=== PATIENT | female | born 1970 | race Native Hawaiian/Other Pacific Islander ===

== ENCOUNTER 2016-10-30 12:47 | Emergency (ER) | payer OTHER ==
[~2016-10-30] VITALS: Ht 162.6 cm; Wt 131.5 kg
[~2016-10-30 12:47] MED LIST: ASA LO-DOSE81 MG OR; BENA5CAP4 PO; CLONIDINE0.1 MG PO; GEMF600T17 PO; JANUVIA100 MG PO; LOTREL1 CA3 PO; LOTREL1 CA4 PO; LOTREL1 CA5 PO; METFORMIN ER1000 MG PO; MIRT15TA2 PO; PHENYTOIN EX100 MG OR; RANI150T78 PO; TRIA37.541 PO
[2016-10-30 13:05] VITALS: BP 181/97; TEMP 97.7
== END 2016-10-30 14:40 | disposition home or self-care (01) ==
LOC: ED 12:47
DX: S60.221A Contusion of right hand, initial encounter (principal); W18.39XA Other fall on same level, initial encounter; Y92.531 Health care provider office as the place of occurrence of the external cause
CPT/HCPCS: 99282

== ENCOUNTER 2017-07-26 13:28 | Outpatient (CLI) | payer OTHER ==
[2017-07-26] MEDS ORDERED: PANTOPRAZOLE 40MG TA PO (15:37)
[2017-07-26] MEDS ORDERED: CLIN300C PO (15:37)
[2017-07-26] MEDS ORDERED: BUSPIRONE5 MG PO (15:40)
[2017-07-26] MEDS ORDERED: AMLODIPINE BESYLATE PO (15:41)
[2017-07-26] MEDS ORDERED: CLONAZEP ODT2 MG PO ×2 (15:42→16:08)
[2017-07-26] MEDS ORDERED: CLONIDINE HCL0.1 MG PO ×2 (15:48)
[2017-07-26] MEDS ORDERED: CARV12.5 PO (15:49)
[2017-07-26] MEDS ORDERED: MINO10TA (15:49)
[2017-07-26] MEDS ORDERED: NEURONTIN800 MG PO (15:50)
[2017-07-26] MEDS ORDERED: BUPR150T PO (15:51)
[2017-07-26] MEDS ORDERED: LIPITOR40 MG PO (15:52)
[2017-07-26] MEDS ORDERED: CLOPIDOGREL75 MG PO (15:52)
[2017-07-26] MEDS ORDERED: CYCL10TA35 PO (15:54)
[2017-07-26] MEDS ORDERED: HYDR50CA21 PO (16:09)
== END 2017-07-26 13:30 | disposition short-term general hospital (02) ==
LOC: AMB 13:28
DX: R06.09 Other forms of dyspnea (principal); R06.2 Wheezing
CPT/HCPCS: A0425; A0427

== ENCOUNTER 2017-07-26 13:30 | Emergency (ER) | payer OTHER ==
[~2017-07-26] VITALS: Ht 162.6 cm; Wt 135.6 kg
[2017-07-26 13:30] VITALS: TEMP 97.2
[2017-07-26 14:28] LABS: PLATELET COUNT 276 K/uL (152-353)
[2017-07-26 14:36] LABS: POTASSIUM 5.8 mmol/L (3.6-5.2)
[2017-07-26] MEDS ORDERED: PANTOPRAZOLE 40MG TA PO (15:37)
[2017-07-26] MEDS ORDERED: CLIN300C PO (15:37)
[2017-07-26] MEDS ORDERED: BUSPIRONE5 MG PO (15:40)
[2017-07-26] MEDS ORDERED: AMLODIPINE BESYLATE PO (15:41)
[2017-07-26] MEDS ORDERED: CLONAZEP ODT2 MG PO ×2 (15:42→16:08)
[2017-07-26] MEDS ORDERED: CLONIDINE HCL0.1 MG PO ×2 (15:48)
[2017-07-26] MEDS ORDERED: MINO10TA (15:49)
[2017-07-26] MEDS ORDERED: CARV12.5 PO (15:49)
[2017-07-26] MEDS ORDERED: NEURONTIN800 MG PO (15:50)
[2017-07-26] MEDS ORDERED: BUPR150T PO (15:51)
[2017-07-26] MEDS ORDERED: CLOPIDOGREL75 MG PO (15:52)
[2017-07-26] MEDS ORDERED: LIPITOR40 MG PO (15:52)
[2017-07-26] MEDS ORDERED: CYCL10TA35 PO (15:54)
[2017-07-26] MEDS ORDERED: HYDR50CA21 PO (16:09)
[2017-07-26 17:40] VITALS: BP 205/114
== END 2017-07-26 18:06 | disposition short-term general hospital (02) ==
LOC: ED 13:30
PROVIDERS: Family Medicine
PROC: 05HP33Z Insertion of Infusion Device into Right External Jugular Vein, Percutaneous Approach (ICD-10-PCS; principal; 2017-07-26)
DX: N18.6 End stage renal disease (principal); I50.9 Heart failure, unspecified; E87.79 Other fluid overload; I10 Essential (primary) hypertension; E11.9 Type 2 diabetes mellitus without complications
CPT/HCPCS: 36415; 36600; 80053; 82805; 83880; 85027; 85379; 93005; 96372; 96374; 96375; 99285; C1768; J1815; J1940; J2175; J2270; J3490

== ENCOUNTER 2017-08-14 08:25 | Outpatient (CLI) | payer OTHER ==
[~2017-08-14 08:25] MED LIST changes: +AMLODIPINE BESYLATE PO; +BUPR150T PO; +BUSPIRONE5 MG PO; +CARV12.5 PO; +CLIN300C PO; +CLONAZEP ODT2 MG PO; +CLONIDINE HCL0.1 MG PO; +CLOPIDOGREL75 MG PO; +CYCL10TA35 PO; +HYDR50CA21 PO; +LIPITOR40 MG PO; +MINO10TA; +NEURONTIN800 MG PO; +PANTOPRAZOLE 40MG TA PO
== END 2017-08-14 08:26 | disposition short-term general hospital (02) ==
LOC: AMB 08:25
DX: R07.89 Other chest pain (principal)
CPT/HCPCS: A0425; A0427

== ENCOUNTER 2017-08-14 08:33 | Emergency (ER) | payer OTHER ==
[~2017-08-14] VITALS: Ht 162.6 cm; Wt 150.6 kg
[2017-08-14 09:27] LABS: PLATELET COUNT 143 K/uL (152-353)
[2017-08-14 09:42] LABS: POTASSIUM 4.2 mmol/L (3.6-5.2)
[2017-08-14 12:35] VITALS: BP 104/72; TEMP 97.3
== END 2017-08-14 12:42 | disposition short-term general hospital (02) ==
LOC: ED 08:33
DX: R07.89 Other chest pain (principal); R00.0 Tachycardia, unspecified
CPT/HCPCS: 36415; 80053; 84484; 85027; 93005; 96374; 99284; J2270

== ENCOUNTER 2017-08-14 12:42 | Outpatient (CLI) | payer OTHER | END 2017-08-14 13:58 | disposition short-term general hospital (02) | LOC: AMB 12:42 | DX: R07.89 Other chest pain (principal); R00.0 Tachycardia, unspecified | CPT/HCPCS: A0425; A0427 ==

== ENCOUNTER 2017-11-18 09:50 | Outpatient (CLI) | payer OTHER | END 2017-11-18 23:14 | disposition home or self-care (01) | LOC: NM 09:50 | DX: N25.81 Secondary hyperparathyroidism of renal origin (principal) | CPT/HCPCS: A9500 ==

== ENCOUNTER 2017-12-16 04:54 | Emergency (ER) | payer OTHER ==
[~2017-12-16] VITALS: Ht 162.6 cm; Wt 154.2 kg
[2017-12-16 05:58] LABS: PLATELET COUNT 280 K/uL (152-353)
[2017-12-16 06:33] LABS: POTASSIUM 5.6 mmol/L (3.6-5.2)
[2017-12-16 11:10] VITALS: BP 178/74
== END 2017-12-16 11:10 | disposition home or self-care (01) ==
LOC: ED 04:54
PROVIDERS: Emergency Medicine
DX: A08.39 Other viral enteritis (principal)
CPT/HCPCS: 80053; 82550; 82553; 84484; 85027; 86140; 93005; 96372; 99283; J2175; J2405

== ENCOUNTER 2018-01-13 10:39 | Outpatient (CLI) | payer OTHER ==
[2018-01-13] MEDS ORDERED: PROBIOTIC1 TAB PO (11:41)
[2018-01-13] MEDS ORDERED: MELATONIN5 M2 PO (11:43)
[2018-01-13] MEDS ORDERED: PROM25TA52 PO (11:43)
[2018-01-13] MEDS ORDERED: OMEPRAZOLE40 MG PO (11:44)
[2018-01-13] MEDS ORDERED: ACET-655 PO (11:46)
[2018-01-13] MEDS ORDERED: ASPIRIN 81 LOW81 MG PO (11:47)
[2018-01-13] MEDS ORDERED: ROCALTROL0.5 MCG PO (11:47)
[2018-01-13] MEDS ORDERED: ZESTRIL40 MG PO (11:48)
[2018-01-13] MEDS ORDERED: BELBUCA150 MCG BU (11:49)
== END 2018-01-13 10:43 | disposition short-term general hospital (02) ==
LOC: AMB 10:39
DX: R07.89 Other chest pain (principal); R06.02 Shortness of breath
CPT/HCPCS: A0425; A0427

== ENCOUNTER 2018-01-13 10:43 | Inpatient (IN) | payer OTHER ==
[2018-01-13] VITALS (30 sets, daily range): BP systolic 116–193; BP diastolic 64–125; TEMP 97.5–98.4; Ht 162.6 cm; Wt 81.2 kg
[~2018-01-13] VITALS: Ht 162.6 cm; Wt 81.2 kg
[2018-01-13 11:32] LABS: PLATELET COUNT 239 K/uL (152-353)
[2018-01-13] MEDS ORDERED: PROBIOTIC1 TAB PO (11:41)
[2018-01-13] MEDS ORDERED: MELATONIN5 M2 PO (11:43)
[2018-01-13] MEDS ORDERED: PROM25TA52 PO (11:43)
[2018-01-13] MEDS ORDERED: OMEPRAZOLE40 MG PO (11:44)
[2018-01-13] MEDS ORDERED: ACET-655 PO (11:46)
[2018-01-13] MEDS ORDERED: ASPIRIN 81 LOW81 MG PO (11:47)
[2018-01-13] MEDS ORDERED: ROCALTROL0.5 MCG PO (11:47)
[2018-01-13] MEDS ORDERED: ZESTRIL40 MG PO (11:48)
[2018-01-13] MEDS ORDERED: BELBUCA150 MCG BU (11:49)
[2018-01-13 12:02] LABS: POTASSIUM 3.2 mmol/L (3.6-5.2); SODIUM 143 mmol/L (136-145)
[2018-01-13 12:16] LABS: PARTIAL THROMBOPLASTIN TIME 23.2 SECONDS (24.5-33.6)
[2018-01-14] VITALS (60 sets, daily range): BP systolic 131–229; BP diastolic 66–112; TEMP 97.8–99.1
[2018-01-14 06:16] LABS: PLATELET COUNT 288 K/uL (152-353)
[2018-01-15] VITALS (8 sets, daily range): BP systolic 143–172; BP diastolic 71–94; TEMP 98.4–98.8
[2018-01-15 07:58] LABS: PLATELET COUNT 368 K/uL (152-353)
[2018-01-15 08:07] LABS: POTASSIUM 4.6 mmol/L (3.6-5.2)
== END 2018-01-15 12:35 | disposition home or self-care (01) | DRG 308 ==
LOC: ED 10:43 → ICU 15:20
PROVIDERS: Allergy & Immunology; ADMIT Student in an Organized Health Care Education/Training Program
DX: I48.91 Unspecified atrial fibrillation (principal); N18.6 End stage renal disease; I12.0 Hypertensive chronic kidney disease with stage 5 chronic kidney disease or end stage renal disease; E11.22 Type 2 diabetes mellitus with diabetic chronic kidney disease; I25.10 Atherosclerotic heart disease of native coronary artery without angina pectoris; E11.42 Type 2 diabetes mellitus with diabetic polyneuropathy; R51 Headache; E66.8 Other obesity
CPT/HCPCS: 80048; 80053; 82310; 82550; 83735; 84100; 84436; 84443; 84484; 85027; 85610; 85730; 93005; 96365; 96376; 99285; J0360; J1644; J1815; J2175; J2405; J3030; J3490

== ENCOUNTER 2018-01-13 12:44 | Outpatient (CLI) | payer OTHER ==
[~2018-01-13 12:44] MED LIST changes: +ACET-655 PO; +ASPIRIN 81 LOW81 MG PO; +BELBUCA150 MCG BU; +MELATONIN5 M2 PO; +OMEPRAZOLE40 MG PO; +PROBIOTIC1 TAB PO; +PROM25TA52 PO; +ROCALTROL0.5 MCG PO; +ZESTRIL40 MG PO
== END 2018-01-13 20:36 | disposition home or self-care (01) ==
LOC: LAB 12:44
DX: D64.9 Anemia, unspecified (principal)

== ENCOUNTER 2018-01-20 12:39 | Emergency (ER) | payer OTHER ==
[~2018-01-20] VITALS: Ht 162.6 cm; Wt 136.1 kg
[2018-01-20 14:28] LABS: PLATELET COUNT 251 K/uL (152-353)
[2018-01-20 14:39] LABS: POTASSIUM 4.4 mmol/L (3.6-5.2)
[2018-01-20 15:00] VITALS: BP 163/86; TEMP 97.9
== END 2018-01-20 15:00 | disposition home or self-care (01) ==
LOC: ED 12:39
DX: S92.514A Nondisplaced fracture of proximal phalanx of right lesser toe(s), initial encounter for closed fracture (principal); E11.9 Type 2 diabetes mellitus without complications; W20.8XXA Other cause of strike by thrown, projected or falling object, initial encounter; Y92.89 Other specified places as the place of occurrence of the external cause
CPT/HCPCS: 80053; 81000; 83036; 85027; 99282

== ENCOUNTER 2018-02-15 10:08 | Emergency (ER) | payer OTHER ==
[~2018-02-15] VITALS: Ht 162.6 cm; Wt 136.1 kg
[2018-02-15 10:10] VITALS: TEMP 98.7
[2018-02-15 11:54] VITALS: BP 127/74
== END 2018-02-15 11:52 | disposition home or self-care (01) ==
LOC: ED 10:08
PROC: 2W3RX1Z Immobilization of Left Lower Leg using Splint (ICD-10-PCS; principal; 2018-02-15)
DX: S93.492A Sprain of other ligament of left ankle, initial encounter (principal); W01.0XXA Fall on same level from slipping, tripping and stumbling without subsequent striking against object, initial encounter; Y92.89 Other specified places as the place of occurrence of the external cause
CPT/HCPCS: 96372; 99283; J1885; J2550

== ENCOUNTER 2018-06-10 09:41 | Outpatient (CLI) | payer OTHER | END 2018-06-10 09:44 | disposition short-term general hospital (02) | LOC: AMB 09:41 | DX: R07.89 Other chest pain (principal) | CPT/HCPCS: A0425; A0427 ==

== ENCOUNTER 2018-06-10 09:50 | Emergency (ER) | payer OTHER ==
[~2018-06-10] VITALS: Ht 162.6 cm; Wt 136.1 kg
[2018-06-10 09:57] VITALS: TEMP 98
[2018-06-10 10:50] LABS: PLATELET COUNT 275 K/uL (152-353)
[2018-06-10 11:12] LABS: SODIUM 136 mmol/L (136-145)
[2018-06-10 14:39] VITALS: BP 136/78
== END 2018-06-10 14:40 | disposition home or self-care (01) ==
LOC: ED 09:50
PROVIDERS: Family Medicine
DX: R07.89 Other chest pain (principal); R11.0 Nausea
CPT/HCPCS: 80053; 82550; 84484; 85027; 93005; 99283

== ENCOUNTER 2018-06-23 03:06 | Emergency (ER) | payer OTHER ==
[~2018-06-23] VITALS: Ht 162.6 cm; Wt 132.5 kg
[2018-06-23 04:11] LABS: PLATELET COUNT 257 K/uL (152-353)
[2018-06-23 04:14] LABS: POTASSIUM 5.7 mmol/L (3.6-5.2)
[2018-06-23 05:23] VITALS: BP 280/127; TEMP 98
== END 2018-06-23 05:23 | disposition home or self-care (01) ==
LOC: ED 03:06
PROVIDERS: Emergency Medicine
DX: I50.9 Heart failure, unspecified (principal); N19 Unspecified kidney failure; I10 Essential (primary) hypertension; R00.0 Tachycardia, unspecified
CPT/HCPCS: 36415; 80053; 83880; 85027; 93005; 94664; 96374; 99284; J1885; J1940

== ENCOUNTER 2018-07-21 11:25 | Emergency (ER) | payer OTHER ==
[~2018-07-21] VITALS: Ht 162.6 cm; Wt 136.1 kg
[2018-07-21 15:30] VITALS: TEMP 97.8
[2018-07-21 16:35] VITALS: BP 145/90
== END 2018-07-21 16:35 | disposition home or self-care (01) ==
LOC: ED 11:25
DX: S90.31XA Contusion of right foot, initial encounter (principal); S90.01XA Contusion of right ankle, initial encounter; W18.39XA Other fall on same level, initial encounter; Y93.89 Activity, other specified; Y92.238 Other place in hospital as the place of occurrence of the external cause; S80.02XA Contusion of left knee, initial encounter
CPT/HCPCS: 96372; 99283; J2175; J2550; L1830

== ENCOUNTER 2018-08-09 11:29 | Emergency (ER) | payer OTHER ==
[~2018-08-09] VITALS: Ht 162.6 cm; Wt 136.1 kg
[2018-08-09 11:42] VITALS: TEMP 98.3
[2018-08-09 13:42] LABS: PLATELET COUNT 282 K/uL (152-353)
[2018-08-09 13:50] LABS: POTASSIUM 4.5 mmol/L (3.6-5.2); SODIUM 136 mmol/L (136-145)
[2018-08-09 15:15] VITALS: BP 163/85
== END 2018-08-09 15:15 | disposition home or self-care (01) ==
LOC: ED 11:29
PROVIDERS: Family Medicine
DX: R07.89 Other chest pain (principal); M17.12 Unilateral primary osteoarthritis, left knee
CPT/HCPCS: 36415; 80053; 82550; 84484; 85027; 93005; 96374; 99284; J1885

== ENCOUNTER → 2018-09-05 20:15 | Outpatient (CLI) | payer OTHER | END | disposition short-term general hospital (02) | LOC: AMB 20:15 | DX: R06.09 Other forms of dyspnea (principal) | CPT/HCPCS: A0425; A0427 ==

== ENCOUNTER 2018-09-05 20:25 | Emergency (ER) | payer OTHER ==
[~2018-09-05] VITALS: Ht 162.6 cm; Wt 140.6 kg
[2018-09-05 20:46] VITALS: TEMP 98.7
[2018-09-05 21:28] LABS: PLATELET COUNT 288 K/uL (152-353)
[2018-09-05 21:44] LABS: SODIUM 134 mmol/L (136-145)
[2018-09-05 21:47] LABS: POTASSIUM 6.6 mmol/L (3.6-5.2)
[2018-09-06 01:15] VITALS: BP 186/108
== END 2018-09-06 01:22 | disposition short-term general hospital (02) ==
LOC: ED 20:25
PROVIDERS: Internal Medicine
DX: J16.8 Pneumonia due to other specified infectious organisms (principal); R09.02 Hypoxemia; N18.6 End stage renal disease; E87.5 Hyperkalemia; J44.9 Chronic obstructive pulmonary disease, unspecified
CPT/HCPCS: 36415; 36600; 80053; 82550; 82805; 83880; 84484; 85027; 87040; 93005; 94664; 96365; 96366; 96375; 99285; J0456; J0610; J0696

== ENCOUNTER 2018-09-16 11:49 | Outpatient (CLI) | payer OTHER | END 2018-09-16 21:40 | disposition home or self-care (01) | LOC: RAD 11:49 | DX: R04.2 Hemoptysis (principal) ==

== ENCOUNTER 2018-09-19 23:49 | Outpatient (CLI) | payer OTHER | END 2018-09-19 23:52 | disposition short-term general hospital (02) | LOC: AMB 23:49 | DX: R07.89 Other chest pain (principal); R06.02 Shortness of breath | CPT/HCPCS: A0425; A0427 ==

== ENCOUNTER 2018-09-19 23:55 | Emergency (ER) | payer OTHER ==
[~2018-09-19] VITALS: Ht 162.6 cm; Wt 140.6 kg
[2018-09-20 00:38] LABS: PLATELET COUNT 260 K/uL (152-353)
[2018-09-20 01:06] LABS: POTASSIUM 5.1 mmol/L (3.6-5.2); SODIUM 136 mmol/L (136-145)
[2018-09-20 04:00] VITALS: BP 166/86; TEMP 99
== END 2018-09-20 04:03 | disposition home or self-care (01) ==
LOC: ED 23:55
PROVIDERS: Emergency Medicine Emergency Medical Services
DX: R07.89 Other chest pain (principal); N18.6 End stage renal disease
CPT/HCPCS: 80053; 82550; 83880; 84484; 85027; 93005; 96374; 96375; 96376; 99284; J2270; J2405

== ENCOUNTER 2018-11-10 06:20 | Emergency (ER) | payer OTHER ==
[~2018-11-10] VITALS: Ht 162.6 cm; Wt 136.2 kg
[2018-11-10 06:31] VITALS: TEMP 98.4
[2018-11-10 06:48] LABS: PLATELET COUNT 291 K/uL (152-353)
[2018-11-10 07:00] LABS: POTASSIUM 5.1 mmol/L (3.6-5.2)
[2018-11-10 07:51] VITALS: BP 162/89
== END 2018-11-10 07:51 | disposition home or self-care (01) ==
LOC: ED 06:20
PROVIDERS: Emergency Medicine Emergency Medical Services
DX: R56.9 Unspecified convulsions (principal)
CPT/HCPCS: 80053; 85027; 99283

== ENCOUNTER 2018-11-20 12:07 | Outpatient (CLI) | payer OTHER ==
[2018-11-20] MEDS ORDERED: ONDA4TAB3 SL (12:27)
[2018-11-20] MEDS ORDERED: ESOMEPRAZOLE MA40 MG PO (12:28)
[2018-11-20] MEDS ORDERED: NIFE30TA PO (12:29)
[2018-11-20] MEDS ORDERED: CARV25TA PO (12:30)
[2018-11-20] MEDS ORDERED: HYDRALAZINE50 MG PO (12:31)
[2018-11-20] MEDS ORDERED: CALCIUM600 M2 PO (12:32)
[2018-11-20] MEDS ORDERED: FUROSEMIDE80 MG PO (12:32)
[2018-11-20] MEDS ORDERED: GRALISE600 MG PO (12:33)
[2018-11-20] MEDS ORDERED: BIOTIN5000 MC2 PO (12:35)
[2018-11-20] MEDS ORDERED: FLUTMIS14 INH (12:35)
[2018-11-20] MEDS ORDERED: SPIRIVA INH (12:36)
== END 2018-11-20 12:10 | disposition short-term general hospital (02) ==
LOC: AMB 12:07
DX: R07.89 Other chest pain (principal)
CPT/HCPCS: A0425; A0427

== ENCOUNTER 2018-11-20 12:11 | Emergency (ER) | payer OTHER ==
[~2018-11-20] VITALS: Ht 162.6 cm; Wt 136.1 kg
[2018-11-20 12:11] VITALS: TEMP 98.4
[2018-11-20] MEDS ORDERED: ONDA4TAB3 SL (12:27)
[2018-11-20] MEDS ORDERED: ESOMEPRAZOLE MA40 MG PO (12:28)
[2018-11-20] MEDS ORDERED: NIFE30TA PO (12:29)
[2018-11-20] MEDS ORDERED: CARV25TA PO (12:30)
[2018-11-20] MEDS ORDERED: HYDRALAZINE50 MG PO (12:31)
[2018-11-20 12:32] LABS: PLATELET COUNT 254 K/uL (152-353)
[2018-11-20] MEDS ORDERED: FUROSEMIDE80 MG PO (12:32)
[2018-11-20] MEDS ORDERED: CALCIUM600 M2 PO (12:32)
[2018-11-20] MEDS ORDERED: GRALISE600 MG PO (12:33)
[2018-11-20] MEDS ORDERED: BIOTIN5000 MC2 PO (12:35)
[2018-11-20] MEDS ORDERED: FLUTMIS14 INH (12:35)
[2018-11-20] MEDS ORDERED: SPIRIVA INH (12:36)
[2018-11-20 12:45] LABS: POTASSIUM 5.3 mmol/L (3.6-5.2); SODIUM 138 mmol/L (136-145)
[2018-11-20 15:00] VITALS: BP 189/92
== END 2018-11-20 15:08 | disposition short-term general hospital (02) ==
LOC: ED 12:13
PROVIDERS: Hospitalist
DX: R07.89 Other chest pain (principal); N18.6 End stage renal disease; Z99.2 Dependence on renal dialysis; E11.65 Type 2 diabetes mellitus with hyperglycemia; I50.9 Heart failure, unspecified
CPT/HCPCS: 80053; 82550; 83880; 84484; 85027; 85610; 85730; 93005; 96372; 99284; J1815

== ENCOUNTER 2018-11-20 15:26 | Outpatient (CLI) | payer OTHER ==
[~2018-11-20 15:26] MED LIST changes: +BIOTIN5000 MC2 PO; +CALCIUM600 M2 PO; +CARV25TA PO; +ESOMEPRAZOLE MA40 MG PO; +FLUTMIS14 INH; +FUROSEMIDE80 MG PO; +GRALISE600 MG PO; +HYDRALAZINE50 MG PO; +NIFE30TA PO; +ONDA4TAB3 SL; +SPIRIVA INH
== END 2018-11-20 16:33 | disposition short-term general hospital (02) ==
LOC: AMB 15:26
DX: N18.6 End stage renal disease (principal); E11.65 Type 2 diabetes mellitus with hyperglycemia; R07.89 Other chest pain
CPT/HCPCS: A0425; A0427

== ENCOUNTER 2018-12-08 13:57 | Outpatient (CLI) | payer OTHER | END 2018-12-08 22:38 | disposition home or self-care (01) | LOC: LAB 13:57 | DX: D64.89 Other specified anemias (principal) | CPT/HCPCS: 85018 ==

== ENCOUNTER 2018-12-29 11:16 | Outpatient (CLI) | payer OTHER | END 2018-12-29 19:57 | disposition home or self-care (01) | LOC: LAB 11:16 | DX: D64.89 Other specified anemias (principal) | CPT/HCPCS: 85014; 85018 ==

== ENCOUNTER 2019-01-05 14:55 | Outpatient (CLI) | payer OTHER | END 2019-01-05 19:35 | disposition home or self-care (01) | LOC: LAB 14:55 | DX: D64.89 Other specified anemias (principal) | CPT/HCPCS: 85018 ==

== ENCOUNTER 2019-01-12 16:14 | Emergency (ER) | payer OTHER ==
[~2019-01-12] VITALS: Ht 162.6 cm; Wt 136.1 kg
[2019-01-12 16:28] VITALS: TEMP 98.1
[2019-01-12 18:15] VITALS: BP 170/84
== END 2019-01-12 18:15 | disposition home or self-care (01) ==
LOC: ED 16:14
DX: S00.01XA Abrasion of scalp, initial encounter (principal); S93.492A Sprain of other ligament of left ankle, initial encounter; W01.190A Fall on same level from slipping, tripping and stumbling with subsequent striking against furniture, initial encounter; Y92.89 Other specified places as the place of occurrence of the external cause
CPT/HCPCS: 99283

== ENCOUNTER 2019-01-17 14:43 | Outpatient (CLI) | payer OTHER | END 2019-01-17 14:46 | disposition short-term general hospital (02) | LOC: AMB 14:43 | DX: R07.89 Other chest pain (principal); M79.602 Pain in left arm | CPT/HCPCS: A0425; A0429 ==

== ENCOUNTER 2019-01-17 14:51 | Emergency (ER) | payer OTHER ==
[~2019-01-17] VITALS: Ht 162.6 cm; Wt 129.7 kg
[2019-01-17 15:37] LABS: PLATELET COUNT 274 K/uL (152-353)
[2019-01-17 15:56] LABS: PARTIAL THROMBOPLASTIN TIME 24.1 SECONDS (24.5-33.6)
[2019-01-17 16:44] LABS: SODIUM 141 mmol/L (136-145)
[2019-01-17 19:00] VITALS: BP 112/65; TEMP 97.8
== END 2019-01-17 19:00 | disposition home or self-care (01) ==
LOC: ED 14:51
PROVIDERS: Family Medicine
DX: R07.89 Other chest pain (principal); I48.91 Unspecified atrial fibrillation; N18.6 End stage renal disease; Z99.2 Dependence on renal dialysis; Z98.890 Other specified postprocedural states
CPT/HCPCS: 80053; 82550; 84484; 85027; 85610; 85730; 93005; 96360; 96361; 96374; 96375; 96376; 99284; J2175; J2405; J3490

== ENCOUNTER 2019-01-29 18:05 | Emergency (ER) | payer OTHER ==
[~2019-01-29] VITALS: Ht 162.6 cm; Wt 128.6 kg
[2019-01-29 18:50] LABS: PLATELET COUNT 325 K/uL (152-353)
[2019-01-29 19:54] LABS: POTASSIUM 4.3 mmol/L (3.6-5.2)
[2019-01-29 20:03] LABS: PARTIAL THROMBOPLASTIN TIME 23.8 SECONDS (24.5-33.6)
[2019-01-29 20:55] VITALS: BP 178/121; TEMP 97.8
== END 2019-01-29 20:55 | disposition home or self-care (01) ==
LOC: ED 18:05
PROVIDERS: Hospitalist
DX: I48.91 Unspecified atrial fibrillation (principal); I48.92 Unspecified atrial flutter; R07.89 Other chest pain; N18.6 End stage renal disease; Z99.2 Dependence on renal dialysis; I50.9 Heart failure, unspecified
CPT/HCPCS: 36415; 80053; 82550; 83880; 84484; 85007; 85027; 85379; 85610; 85730; 93005; 96374; 96375; 99284; J2405; J3490

== ENCOUNTER 2019-02-02 06:13 | Outpatient (CLI) | payer OTHER | END 2019-02-02 06:17 | disposition short-term general hospital (02) | LOC: AMB 06:13 | DX: R07.89 Other chest pain (principal); R06.09 Other forms of dyspnea; R06.2 Wheezing; Z99.2 Dependence on renal dialysis | CPT/HCPCS: A0425; A0427 ==

== ENCOUNTER 2019-02-02 06:17 | Emergency (ER) | payer OTHER ==
[~2019-02-02] VITALS: Ht 162.6 cm; Wt 128.4 kg
[2019-02-02 06:17] VITALS: TEMP 97.2
[2019-02-02 06:38] LABS: PLATELET COUNT 257 K/uL (152-353)
[2019-02-02 06:53] LABS: POTASSIUM 5.4 mmol/L (3.6-5.2); SODIUM 133 mmol/L (136-145)
[2019-02-02 07:36] LABS: PARTIAL THROMBOPLASTIN TIME 25.6 SECONDS (24.5-33.6)
[2019-02-02 09:30] VITALS: BP 140/90
== END 2019-02-02 09:45 | disposition short-term general hospital (02) ==
LOC: ED 06:25
PROVIDERS: Emergency Medicine
DX: N18.9 Chronic kidney disease, unspecified (principal); Z99.2 Dependence on renal dialysis; R06.09 Other forms of dyspnea; I48.92 Unspecified atrial flutter
CPT/HCPCS: 80053; 82550; 83880; 84484; 85027; 85379; 85610; 85730; 93005; 96374; 99284; J2405

== ENCOUNTER 2019-02-02 09:58 | Outpatient (CLI) | payer OTHER | END 2019-02-02 10:55 | disposition short-term general hospital (02) | LOC: AMB 09:58 | DX: N18.6 End stage renal disease (principal); Z99.2 Dependence on renal dialysis; R06.02 Shortness of breath; M54.89 Other dorsalgia; W19.XXXA Unspecified fall, initial encounter; I48.91 Unspecified atrial fibrillation; I44.7 Left bundle-branch block, unspecified; I21.4 Non-ST elevation (NSTEMI) myocardial infarction; R73.9 Hyperglycemia, unspecified; R07.89 Other chest pain | CPT/HCPCS: A0425; A0427 ==

== ENCOUNTER 2019-02-05 11:55 | Outpatient (CLI) | payer OTHER | END 2019-02-05 11:56 | disposition short-term general hospital (02) | LOC: AMB 11:55 | DX: R06.02 Shortness of breath (principal); R06.4 Hyperventilation | CPT/HCPCS: A0425; A0427 ==

== ENCOUNTER 2019-02-05 12:05 | Emergency (ER) | payer OTHER ==
[~2019-02-05] VITALS: Ht 162.6 cm; Wt 128.4 kg
[2019-02-05 12:13] VITALS: TEMP 97.5
[2019-02-05 12:37] LABS: PLATELET COUNT 319 K/uL (152-353)
[2019-02-05 12:54] LABS: PARTIAL THROMBOPLASTIN TIME 25.1 SECONDS (24.5-33.6)
[2019-02-05 12:56] LABS: POTASSIUM 3.9 mmol/L (3.6-5.2); SODIUM 135 mmol/L (136-145)
[2019-02-05 14:35] VITALS: BP 126/88
== END 2019-02-05 14:36 | disposition home or self-care (01) ==
LOC: ED 12:05
PROVIDERS: Hospitalist
DX: N18.6 End stage renal disease (principal); Z99.2 Dependence on renal dialysis; I48.20 Chronic atrial fibrillation, unspecified; I50.9 Heart failure, unspecified
CPT/HCPCS: 36415; 36600; 80053; 82550; 82805; 83880; 84484; 85027; 85610; 85730; 93005; 96374; 96375; 99284; J1940; J2405; J3490

== ENCOUNTER 2019-02-16 06:55 | Outpatient (CLI) | payer OTHER | END 2019-02-16 06:56 | disposition short-term general hospital (02) | LOC: AMB 06:55 | DX: M79.602 Pain in left arm (principal); M53.3 Sacrococcygeal disorders, not elsewhere classified | CPT/HCPCS: A0425; A0429 ==

== ENCOUNTER 2019-02-16 06:58 | Emergency (ER) | payer OTHER ==
[~2019-02-16] VITALS: Ht 162.6 cm; Wt 130.8 kg
[2019-02-16 06:58] VITALS: TEMP 97.9
[2019-02-16 08:47] VITALS: BP 104/74
== END 2019-02-16 09:02 | disposition home or self-care (01) ==
LOC: ED 06:58
DX: S30.0XXD Contusion of lower back and pelvis, subsequent encounter (principal); S63.592A Other specified sprain of left wrist, initial encounter
CPT/HCPCS: 96372; 99283; J2175

== ENCOUNTER 2019-03-09 08:17 | Emergency (ER) | payer OTHER ==
[~2019-03-09] VITALS: Ht 162.6 cm; Wt 130.6 kg
[2019-03-09 08:23] VITALS: TEMP 98.3
[2019-03-09 09:23] LABS: PLATELET COUNT 173 K/uL (152-353)
[2019-03-09 09:29] LABS: PARTIAL THROMBOPLASTIN TIME 26.2 SECONDS (24.5-33.6)
[2019-03-09 11:00] VITALS: BP 178/85
== END 2019-03-09 11:01 | disposition home or self-care (01) ==
LOC: ED 08:17
PROVIDERS: Hospitalist
DX: J40 Bronchitis, not specified as acute or chronic (principal); N18.6 End stage renal disease; Z99.2 Dependence on renal dialysis; I16.0 Hypertensive urgency; R56.9 Unspecified convulsions; R00.0 Tachycardia, unspecified; R94.31 Abnormal electrocardiogram [ECG] [EKG]
CPT/HCPCS: 80053; 82550; 83880; 84484; 85027; 85610; 85730; 93005; 94664; 96365; 96375; 99284; J0360; J0696; J2405

== ENCOUNTER 2019-03-17 05:27 | Emergency (ER) | payer OTHER ==
[~2019-03-17] VITALS: Ht 162.6 cm; Wt 130.6 kg
[2019-03-17 05:30] VITALS: TEMP 97.9
[2019-03-17 06:37] LABS: PLATELET COUNT 219 K/uL (152-353)
[2019-03-17 06:44] LABS: POTASSIUM 5.3 mmol/L (3.6-5.2); SODIUM 141 mmol/L (136-145)
[2019-03-17 09:06] VITALS: BP 134/65
== END 2019-03-17 09:06 | disposition home or self-care (01) ==
LOC: ED 05:27
PROVIDERS: Emergency Medicine
DX: I48.92 Unspecified atrial flutter (principal); N18.9 Chronic kidney disease, unspecified
CPT/HCPCS: 80053; 83605; 83690; 83735; 83880; 84484; 85027; 93005; 99283; J3490

== ENCOUNTER 2019-03-20 03:39 | Emergency (ER) | payer OTHER ==
[~2019-03-20] VITALS: Ht 162.6 cm; Wt 130.6 kg
[2019-03-20 04:34] LABS: PLATELET COUNT 198 K/uL (152-353)
[2019-03-20 05:08] VITALS: BP 153/74; TEMP 98.2
== END 2019-03-20 05:08 | disposition home or self-care (01) ==
LOC: ED 03:39
PROVIDERS: Hospitalist
DX: G62.89 Other specified polyneuropathies (principal); N18.6 End stage renal disease; Z99.2 Dependence on renal dialysis
CPT/HCPCS: 36415; 80048; 85027; 96372; 99283; J1885

== ENCOUNTER 2019-03-21 06:08 | Emergency (ER) | payer OTHER ==
[~2019-03-21] VITALS: Ht 162.6 cm; Wt 130.6 kg
[2019-03-21 06:10] VITALS: BP 144/107; TEMP 97.7
[2019-03-21 07:05] LABS: PLATELET COUNT 200 K/uL (152-353)
[2019-03-21 07:18] LABS: POTASSIUM 4.4 mmol/L (3.6-5.2); SODIUM 139 mmol/L (136-145)
== END 2019-03-21 08:04 | disposition home or self-care (01) ==
LOC: ED 06:08
PROVIDERS: Emergency Medicine
DX: I48.92 Unspecified atrial flutter (principal); I45.19 Other right bundle-branch block
CPT/HCPCS: 36415; 80053; 83690; 83735; 84484; 85027; 93005; 96374; 99284; J2060; J3490

== ENCOUNTER 2019-03-28 14:30 | Emergency (ER) | payer OTHER ==
[~2019-03-28] VITALS: Ht 162.6 cm; Wt 130.6 kg
[2019-03-28 14:37] VITALS: TEMP 98.2
[2019-03-28 17:54] VITALS: BP 172/104
== END 2019-03-28 17:55 | disposition home or self-care (01) ==
LOC: ED 14:30
DX: I10 Essential (primary) hypertension (principal); R00.0 Tachycardia, unspecified; I48.91 Unspecified atrial fibrillation; R94.31 Abnormal electrocardiogram [ECG] [EKG]
CPT/HCPCS: 93005; 99284; Q0177

== ENCOUNTER 2019-03-29 11:08 | Emergency (ER) | payer OTHER ==
[~2019-03-29] VITALS: Ht 162.6 cm; Wt 129.3 kg
[2019-03-29 11:24] VITALS: TEMP 97.9
[2019-03-29 12:06] LABS: PLATELET COUNT 212 K/uL (152-353)
[2019-03-29 12:25] LABS: POTASSIUM 4.6 mmol/L (3.6-5.2); SODIUM 140 mmol/L (136-145)
[2019-03-29 13:25] VITALS: BP 148/90
== END 2019-03-29 13:25 | disposition home or self-care (01) ==
LOC: ED 11:08
PROVIDERS: Emergency Medicine
DX: R06.03 Acute respiratory distress (principal); I50.9 Heart failure, unspecified; N19 Unspecified kidney failure; L29.9 Pruritus, unspecified; I48.92 Unspecified atrial flutter
CPT/HCPCS: 80053; 82550; 82553; 83605; 83880; 84484; 85027; 93005; 94664; 96372; 99283; J1200

== ENCOUNTER 2019-03-31 03:22 | Emergency (ER) | payer OTHER ==
[~2019-03-31] VITALS: Ht 162.6 cm; Wt 129.3 kg
[2019-03-31 04:30] VITALS: BP 128/87; TEMP 98.2
== END 2019-03-31 04:47 | disposition home or self-care (01) ==
LOC: ED 03:22
DX: I10 Essential (primary) hypertension (principal); N18.6 End stage renal disease; Z99.2 Dependence on renal dialysis
CPT/HCPCS: 99282

== ENCOUNTER 2019-04-01 08:23 | Outpatient (CLI) | payer OTHER | END 2019-04-01 08:24 | disposition short-term general hospital (02) | LOC: AMB 08:23 | DX: I10 Essential (primary) hypertension (principal) | CPT/HCPCS: A0425; A0427 ==

== ENCOUNTER 2019-04-01 08:29 | Emergency (ER) | payer OTHER ==
[~2019-04-01] VITALS: Ht 162.6 cm; Wt 129.3 kg
[2019-04-01 09:17] LABS: POTASSIUM 4.5 mmol/L (3.6-5.2)
[2019-04-01 09:19] LABS: PLATELET COUNT 186 K/uL (152-353)
[2019-04-01 12:44] VITALS: BP 152/95; TEMP 98.4
== END 2019-04-01 12:53 | disposition home or self-care (01) ==
LOC: ED 08:29
PROVIDERS: Emergency Medicine
DX: I10 Essential (primary) hypertension (principal); N18.6 End stage renal disease; Z99.2 Dependence on renal dialysis; R00.0 Tachycardia, unspecified; I50.9 Heart failure, unspecified
CPT/HCPCS: 80053; 83880; 85027; 93005; 96374; 96375; 99284; J0360; J1200; J3490

== ENCOUNTER 2019-04-03 09:36 | Outpatient (CLI) | payer OTHER | END 2019-04-03 09:37 | disposition short-term general hospital (02) | LOC: AMB 09:36 | DX: I10 Essential (primary) hypertension (principal) | CPT/HCPCS: A0425; A0429 ==

== ENCOUNTER 2019-04-03 09:39 | Emergency (ER) | payer OTHER ==
[~2019-04-03] VITALS: Ht 162.6 cm; Wt 128.8 kg
[2019-04-03 09:39] VITALS: TEMP 97.3
[2019-04-03 10:44] LABS: PLATELET COUNT 201 K/uL (152-353)
[2019-04-03 10:58] LABS: POTASSIUM 3.3 mmol/L (3.6-5.2); SODIUM 142 mmol/L (136-145)
[2019-04-03 13:28] VITALS: BP 168/100
== END 2019-04-03 13:28 | disposition home or self-care (01) ==
LOC: ED 09:39
PROVIDERS: Emergency Medicine
DX: R53.81 Other malaise (principal); N18.6 End stage renal disease; Z99.2 Dependence on renal dialysis
CPT/HCPCS: 80053; 82550; 83605; 83735; 83880; 84484; 85027; 87502; 93005; 99283

== ENCOUNTER 2019-04-05 09:41 | Outpatient (CLI) | payer OTHER | END 2019-04-05 09:44 | disposition short-term general hospital (02) | LOC: AMB 09:41 | DX: G40.89 Other seizures (principal) | CPT/HCPCS: A0425; A0429 ==

== ENCOUNTER 2019-04-05 09:57 | Emergency (ER) | payer OTHER ==
[~2019-04-05] VITALS: Ht 162.6 cm; Wt 128.8 kg
[2019-04-05 10:04] VITALS: TEMP 97.5
[2019-04-05 10:46] LABS: PLATELET COUNT 227 K/uL (152-353)
[2019-04-05 12:28] VITALS: BP 133/106
== END 2019-04-05 12:28 | disposition home or self-care (01) ==
LOC: ED 09:57
PROVIDERS: Emergency Medicine
DX: G40.89 Other seizures (principal); N18.6 End stage renal disease; Z99.2 Dependence on renal dialysis
CPT/HCPCS: 80053; 83735; 83880; 85027; 93005; 99283

== ENCOUNTER 2019-04-06 03:33 | Outpatient (CLI) | payer OTHER | END 2019-04-06 03:37 | disposition short-term general hospital (02) | LOC: AMB 03:33 | DX: G40.89 Other seizures (principal) | CPT/HCPCS: A0425; A0429 ==

== ENCOUNTER 2019-04-06 03:37 | Emergency (ER) | payer OTHER ==
[~2019-04-06] VITALS: Ht 162.6 cm; Wt 128.8 kg
[2019-04-06 04:24] LABS: PLATELET COUNT 197 K/uL (152-353)
[2019-04-06 04:37] LABS: POTASSIUM 4.3 mmol/L (3.6-5.2)
[2019-04-06 05:23] VITALS: BP 116/74; TEMP 97.2
== END 2019-04-06 05:23 | disposition short-term general hospital (02) ==
LOC: ED 03:37
PROVIDERS: Emergency Medicine
DX: G40.89 Other seizures (principal); N18.6 End stage renal disease; Z99.2 Dependence on renal dialysis
CPT/HCPCS: 36415; 80053; 83880; 85027; 96372; 99284; J2060

== ENCOUNTER 2019-04-06 05:24 | Outpatient (CLI) | payer OTHER | END 2019-04-06 06:38 | disposition short-term general hospital (02) | LOC: AMB 05:24 | DX: G40.89 Other seizures (principal) | CPT/HCPCS: A0425; A0429 ==

== ENCOUNTER 2019-04-25 22:46 | Observation (INO) | payer OTHER ==
[~2019-04-25] VITALS: Ht 162.6 cm; Wt 129.4 kg
[2019-04-25 23:30] VITALS: BP 144/95; TEMP 99.1
[2019-04-26] VITALS (7 sets, daily range): BP systolic 112–159; BP diastolic 82–100; TEMP 97.8–99.3; Ht 162.6 cm; Wt 129.4 kg
[2019-04-26 01:07] LABS: PLATELET COUNT 253 K/uL (152-353)
[2019-04-26 01:46] LABS: POTASSIUM 4.9 mmol/L (3.6-5.2); SODIUM 139 mmol/L (136-145)
[2019-04-26] MEDS ORDERED: CLON1TAB18 PO (14:46)
[2019-04-26] MEDS ORDERED: CLOPIDOGREL75 MG PO (14:47)
[2019-04-26] MEDS ORDERED: FLUOXETINE10 MG PO (14:48)
[2019-04-26] MEDS ORDERED: NEURONTIN 100M100 MG PO (14:54)
[2019-04-26] MEDS ORDERED: ROWEEPRA XR500 MG PO (14:55)
[2019-04-26] MEDS ORDERED: PANTOPRAZOLE 40MG TA PO (14:56)
[2019-04-26] MEDS ORDERED: RANO500T PO (15:00)
[2019-04-26] MEDS ORDERED: RENVELA800 MG PO (15:01)
[2019-04-26] MEDS ORDERED: NIFE30TA PO (15:03)
[2019-04-26] MEDS ORDERED: APIX1TAB PO (16:32)
[2019-04-26] MEDS ORDERED: OXYC5TAB24 PO (16:37)
[2019-04-26] MEDS ORDERED: ASPIRIN DR81 MG PO (16:38)
[2019-04-26] MEDS ORDERED: METOCLOPRAM5 MG PO (16:39)
[2019-04-26] MEDS ORDERED: CARV12.5 PO (16:40)
[2019-04-27 04:00] VITALS: BP 154/91; TEMP 98.1
== END 2019-04-27 05:30 | disposition home or self-care (01) ==
LOC: ED 22:46 → MED/SURG 04-26 04:19
PROVIDERS: ADMIT Student in an Organized Health Care Education/Training Program
DX: I48.20 Chronic atrial fibrillation, unspecified (principal); Z79.01 Long term (current) use of anticoagulants; G40.802 Other epilepsy, not intractable, without status epilepticus; I25.10 Atherosclerotic heart disease of native coronary artery without angina pectoris; F41.8 Other specified anxiety disorders; E11.42 Type 2 diabetes mellitus with diabetic polyneuropathy; I13.2 Hypertensive heart and chronic kidney disease with heart failure and with stage 5 chronic kidney disease, or end stage renal disease; E11.22 Type 2 diabetes mellitus with diabetic chronic kidney disease; N18.6 End stage renal disease; I50.89 Other heart failure; Z99.2 Dependence on renal dialysis
CPT/HCPCS: 36415; 80048; 82550; 83735; 83880; 84443; 84484; 85027; 85610; 85730; 93005; 94760; 96374; 96375; 96376; 99220; 99284; G0378; J1160; J1650; J2405; J2765; J3490

== ENCOUNTER 2019-04-28 12:55 | Emergency (ER) | payer OTHER ==
[~2019-04-28] VITALS: Ht 162.6 cm; Wt 129.3 kg
[~2019-04-28 12:55] MED LIST changes: +APIX1TAB PO; +ASPIRIN DR81 MG PO; +CLON1TAB18 PO; +FLUOXETINE10 MG PO; +METOCLOPRAM5 MG PO; +NEURONTIN 100M100 MG PO; +OXYC5TAB24 PO; +RANO500T PO; +RENVELA800 MG PO; +ROWEEPRA XR500 MG PO
[2019-04-28 13:16] VITALS: TEMP 97.7
[2019-04-28 13:54] VITALS: BP 142/84
== END 2019-04-28 13:55 | disposition home or self-care (01) ==
LOC: ED 12:55
DX: I48.91 Unspecified atrial fibrillation (principal); N18.6 End stage renal disease; Z99.2 Dependence on renal dialysis
CPT/HCPCS: 99281

== ENCOUNTER 2019-05-04 16:47 | Emergency (ER) | payer OTHER ==
[~2019-05-04] VITALS: Ht 162.6 cm; Wt 124.7 kg
[2019-05-04 19:21] LABS: PLATELET COUNT 296 K/uL (152-353)
[2019-05-04 19:39] LABS: POTASSIUM 5.1 mmol/L (3.6-5.2)
[2019-05-04 21:42] VITALS: BP 139/88; TEMP 98.3
== END 2019-05-04 21:42 | disposition short-term general hospital (02) ==
LOC: ED 16:47
PROVIDERS: Emergency Medicine
DX: J18.9 Pneumonia, unspecified organism (principal); N18.6 End stage renal disease; Z99.2 Dependence on renal dialysis
CPT/HCPCS: 36415; 80053; 83605; 85027; 87040; 87502; 94664; 96372; 99283; J0696; J1815

== ENCOUNTER 2019-05-04 21:56 | Outpatient (CLI) | payer OTHER | END 2019-05-04 23:12 | disposition short-term general hospital (02) | LOC: AMB 21:56 | DX: J18.9 Pneumonia, unspecified organism (principal); R74.0 Nonspecific elevation of levels of transaminase and lactic acid dehydrogenase [LDH] | CPT/HCPCS: A0425; A0427 ==

== ENCOUNTER 2019-05-16 09:23 | Outpatient (CLI) | payer OTHER | END 2019-05-16 22:20 | disposition home or self-care (01) | LOC: RAD 09:23 | DX: R05 Cough (principal) ==

== ENCOUNTER 2019-05-19 19:39 | Emergency (ER) | payer OTHER ==
[~2019-05-19] VITALS: Ht 162.6 cm; Wt 124.7 kg
[2019-05-19 19:49] VITALS: BP 122/88; TEMP 97.7
== END 2019-05-19 23:13 | disposition home or self-care (01) ==
LOC: ED 19:39
PROC: 2W3DX1Z Immobilization of Left Lower Arm using Splint (ICD-10-PCS; principal; 2019-05-19)
DX: S60.212A Contusion of left wrist, initial encounter (principal); S60.222A Contusion of left hand, initial encounter; S80.02XA Contusion of left knee, initial encounter; S80.12XA Contusion of left lower leg, initial encounter; W18.39XA Other fall on same level, initial encounter; Y92.89 Other specified places as the place of occurrence of the external cause
CPT/HCPCS: 99282; 99283

== ENCOUNTER 2019-10-31 11:36 | Outpatient (CLI) | payer OTHER | END 2019-10-31 19:20 | disposition home or self-care (01) | LOC: LAB 11:36 | DX: E87.5 Hyperkalemia (principal) | CPT/HCPCS: 84132 ==

== ENCOUNTER 2020-01-04 14:52 | Outpatient (CLI) | payer OTHER | END 2020-01-04 23:48 | disposition home or self-care (01) | LOC: LAB 14:52 | DX: D64.89 Other specified anemias (principal) | CPT/HCPCS: 85014; 85018 ==

== ENCOUNTER 2020-11-12 13:15 | Outpatient (CLI) | payer OTHER | END 2020-11-12 19:23 | disposition home or self-care (01) | LOC: LAB 13:15 | PROVIDERS: ATTEND Family Medicine | DX: R56.9 Unspecified convulsions (principal) | CPT/HCPCS: 82542 ==